=== PATIENT | female | born 1970 | race Caucasian/White ===

== ENCOUNTER 2022-09-22 16:56 | Emergency (ER) | payer OTHER ==
[2022-09-22 17:05] VITALS: BP 145/98; PULSE 104; RESP 20; TEMP 98; BMI 29.6
[2022-09-22] MEDS ORDERED: AMOX TR/POT CLAV 875MG/125MG TABLETS (FP) PO ONE (17:48)
[2022-09-22] MEDS ORDERED: DIPHTH,PERTUSS(ACELL),TET 0.5 ML DISP.SYRIN IM ONE ×2 (17:49→18:08)
[2022-09-22] MEDS ORDERED: AMOX TR/POT CLAV 875MG/125MG TABLETS (FP) ONE (18:08)
== END 2022-09-22 18:56 | disposition home or self-care (01) ==
LOC: JERFT 16:56
PROC: 3E0234Z Introduction of Serum, Toxoid and Vaccine into Muscle, Percutaneous Approach (ICD-10-PCS; principal; 2022-09-22)
DX: S70.311A Abrasion, right thigh, initial encounter (principal); S70.312A Abrasion, left thigh, initial encounter; W55.03XA Scratched by cat, initial encounter; Y93.9 Activity, unspecified; Y92.019 Unspecified place in single-family (private) house as the place of occurrence of the external cause
CPT/HCPCS: 90471; 90715; 99283-25